=== PATIENT | male | born 1960 | race Caucasian/White ===

== ENCOUNTER 2019-06-18 11:01 | Emergency (ER) | payer OTHER ==
[~2019-06-18] VITALS: Ht 172.7 cm; Wt 84.8 kg
--- NOTE | 2019-06-18 11:11 | NUR ---
Pt [email or web address], witnessed seizure by sister on the way to the dentist. 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 -[place]. Pt alert and unable to recall the episode, vss, respirations even and unlabored on room air w/ nad noted. Pt connected to the monitor and pox. Seizure precautions implemented
[2019-06-18] MEDS ORDERED: LORAZEPAM INJ 2 MG/ML VIAL ONE (11:15)
[2019-06-18 11:25] LABS: BASOPHILS % (AUTO) 0.5 % (0.0-2.0); EOSINOPHILS % (AUTO) 1.1 % (0.0-6.0); HEMATOCRIT 47 % (39-51); HEMOGLOBIN 15.3 g/dL (13.5-17.5); LYMPHOCYTES # (AUTO) 1.8 /CMM (0.8-4.8); LYMPHOCYTES % (AUTO) 29.7 % (20.0-44.0); MEAN CORPUSCULAR HGB CONC 33 g/dl (31.0-36.0); MEAN CORPUSCULAR VOLUME 97 fL (80-96); MONOCYTES # (AUTO) 0.5 /CMM (0.1-1.30); MONOCYTES % (AUTO) 8.7 % (2.0-12.0); NEUTROPHILS # (AUTO) 3.6 /CMM (1.8-8.9); PLATELET COUNT (AUTO) 257 /CMM (150-450); RED BLOOD CELL COUNT(AUTO) 4.86 MIL/uL (4.5-6.0)
--- NOTE | 2019-06-18 11:25 | NUR ---
BLOOD DRAWN AND SENT TO LAB
--- NOTE | 2019-06-18 11:25 | NUR ---
EKG AT BEDSIDE
[2019-06-18] MEDS ORDERED: LORAZEPAM INJ 2 MG/ML VIAL IVP ONE (11:30)
[2019-06-18 11:41] LABS: ALBUMIN 3.9 g/dL (3.4-5.0); BILIRUBIN,DIRECT 0.1 mg/dL (0.0-0.2); BILIRUBIN,TOTAL 0.4 mg/dL (0.2-1.0); CALCIUM, SERUM 9.9 mg/dL (8.5-10.1); CREATININE 1.7 mg/dL (0.6-1.3); POTASSIUM 4.3 mmol/L (3.5-5.1); TOTAL PROTEIN, SERUM 7.5 g/dL (6.4-8.2)
--- NOTE | 2019-06-18 11:41 | NUR ---
PT TAKEN TO CT
--- NOTE | 2019-06-18 11:45 | NUR ---
PT BACK FROM CT
[2019-06-18] MEDS ORDERED: LEVETIRACETAM (500MG) 500 MG in IV NS 0.9% 100 ML IV ONE (13:00)
[2019-06-18 14:17] VITALS: BP 125/82
--- NOTE | 2019-06-18 14:17 | NUR ---
Patient discharged to home in stable condition. Written and verbal after care instructions given. Patient verbalizes understanding of instruction.
== END 2019-06-18 14:18 | disposition home or self-care (01) ==
LOC: ER 11:03
DX: R56.9 Unspecified convulsions (principal); I10 Essential (primary) hypertension; E11.9 Type 2 diabetes mellitus without complications
CPT/HCPCS: 36415; 70450; 80048; 80076; 85025; 93005; 96365; 96375; 99284; J1953; J2060; J7030